=== PATIENT | male | born 1955 | race Hispanic/Latino ===

== ENCOUNTER 2023-12-04 09:32 | Outpatient (CLI) | payer BC | END 2023-12-04 09:33 | disposition home or self-care (01) | LOC: CSHMRI 09:32 | PROVIDERS: ATTEND Urology | DX: R97.20 Elevated prostate specific antigen [PSA] (principal); Z98.890 Other specified postprocedural states | CPT/HCPCS: 72197 ==

== ENCOUNTER 2024-07-04 10:53 | Observation (INO) | payer BC ==
[2024-07-03 11:11] VITALS: BMI 26.6
[2024-07-04] MEDS ORDERED: Iopamidol 300 61% 100 ML VIAL FS ONE (11:04)
[2024-07-04 12:26] LABS: #Basophils 0.02 10x3/uL (0.0-0.2); #Eosinphils 0.15 10x3/uL (0.0-0.5); #Neutrophils 5.06 10x3/uL (1.5-8.4); %Basophils 0.3 % (0.0-2.0); %Lymphocytes 22.2 % (18.0-47.0); %Monocytes 6.7 % (0.0-10.0); %Neutrophils 68.3 % (40.0-75.0); Hematocrit 37.8 % (38.8-50.0); Hemoglobin 12.3 g/dL (13.5-17.5); Mean Corpuscular HGB CONC 32.5 g/dL (32.0-36.0); Mean Corpuscular Hemoglobin 31.1 pg (27.0-33.0); Mean Corpuscular Volume 95.7 fL (81.2-95.1); Mean Platelet Volume 10.5 fL (7.4-10.4); Platelet Count 183 10x3/uL (150-450); RBC Distribution Width 13.5 % (11.5-14.5); Red Blood Cell (RBC) Count 3.95 10x6/uL (4.32-5.72); White Blood Cell (WBC) Count 7.4 10x3/uL (3.5-10.5)
[2024-07-04 12:35] LABS: PTT 28.4 sec (22.0-33.0); Prothrombin Time 11.1 sec (9.5-12.1)
[2024-07-04 12:36] LABS: ALT (SGPT) 17 U/L (8-55); AST (SGOT) 18 U/L (5-34); Albumin 4.2 g/dL (3.4-4.8); Alkaline Phosphatase 61 U/L (40-110); Anion Gap 13 mmol/L (10-20); BUN (Urea Nitrogen) 24 mg/dL (8.4-25.7); Bilirubin, Total 0.4 mg/dL (0.2-1.2); Calc. Creatinine Clearance 56 mL/min (70-130); Calcium 9.6 mg/dL (7.8-10.44); Carbon Dioxide 21 mmol/L (23-31); Chloride 111 mmol/L (98-107); Estimated GFR 56; Globulin 2.7 g/dL (2.4-3.5); Glucose 83 mg/dL (83-110); Potassium 4.3 mmol/L (3.5-5.1); Protein, Total 6.9 g/dL (5.8-8.1); Sodium 141 mmol/L (136-145)
[2024-07-04] MEDS ORDERED: Ascorbic Acid 500 mg Chewable Tablet ONE (12:48)
[2024-07-04] MEDS ORDERED: Aspirin 325 MG TAB ONE (12:48)
[2024-07-04] MEDS ORDERED: Nitroglycerin 50 MG/250 ML BOT 250 ML ONE (15:12)
[2024-07-04] MEDS ORDERED: Lidocaine 1% (PF) 30 ML VIAL ONE (15:12)
[2024-07-04] MEDS ORDERED: fentaNYL 50 mcg/mL 1 mL Vial ONE (15:12)
[2024-07-04] MEDS ORDERED: Midazolam HCl 2 mg/2 ml Vial ONE (15:12)
[2024-07-04] MEDS ORDERED: Heparin 10,000 UNITS/ 10 ML VIAL ONE (15:12)
[2024-07-04] MEDS ORDERED: Clopidogrel Bisulfate 300 MG TAB ONE (16:37)
[2024-07-04] MEDS ORDERED: Zolpidem Tartrate 5 MG TAB PO PRN (17:20)
[2024-07-04] MEDS ORDERED: Mag-Al 1200 mg/1200 mg/30 ML UDCUP PO PRN (17:20)
[2024-07-04] MEDS ORDERED: Milk Of Magnesia 30 ML UDCUP PO PRN (17:20)
[2024-07-04] MEDS ORDERED: Nitroglycerin 0.4 MG TAB (25 Tab Bottle) SL PRN (17:20)
[2024-07-04] MEDS: Sodium Chloride 0.9% 1,000 ML IV SCH (18:57)
[2024-07-04] MEDS: Gabapentin 400 MG CAP PO SCH (20:45)
[2024-07-04] MEDS: Rosuvastatin 20 MG TAB PO SCH (20:45)
[2024-07-05 05:38] LABS: #Basophils 0.02 10x3/uL (0.0-0.2); #Eosinphils 0.18 10x3/uL (0.0-0.5); #Monocytes 0.58 10x3/uL (0.0-1.1); #Neutrophils 5.54 10x3/uL (1.5-8.4); %Basophils 0.2 % (0.0-2.0); %Eosinophils 2.2 % (0.0-6.0); %Lymphocytes 20.8 % (18.0-47.0); %Monocytes 7.2 % (0.0-10.0); Hematocrit 34.8 % (38.8-50.0); Hemoglobin 11.4 g/dL (13.5-17.5); Mean Corpuscular HGB CONC 32.8 g/dL (32.0-36.0); Mean Corpuscular Hemoglobin 31.5 pg (27.0-33.0); Mean Corpuscular Volume 96.1 fL (81.2-95.1); Mean Platelet Volume 10.4 fL (7.4-10.4); Platelet Count 172 10x3/uL (150-450); RBC Distribution Width 13.7 % (11.5-14.5); Red Blood Cell (RBC) Count 3.62 10x6/uL (4.32-5.72)
[2024-07-05 05:51] LABS: ALT (SGPT) 15 U/L (8-55); AST (SGOT) 19 U/L (5-34); Albumin 3.4 g/dL (3.4-4.8); Alkaline Phosphatase 53 U/L (40-110); Anion Gap 10 mmol/L (10-20); BUN (Urea Nitrogen) 21 mg/dL (8.4-25.7); Bilirubin, Total 0.2 mg/dL (0.2-1.2); Calc. Creatinine Clearance 63 mL/min (70-130); Calcium 8.9 mg/dL (7.8-10.44); Carbon Dioxide 21 mmol/L (23-31); Chloride 112 mmol/L (98-107); Estimated GFR 65; Globulin 2.3 g/dL (2.4-3.5); Glucose 134 mg/dL (83-110); Potassium 4.1 mmol/L (3.5-5.1); Protein, Total 5.7 g/dL (5.8-8.1); Sodium 139 mmol/L (136-145)
[2024-07-05] MEDS: Acetaminophen 325 MG TAB PO PRN (06:20)
[2024-07-05] MEDS: Clopidogrel Bisulfate 75 MG TAB PO SCH (08:44)
[2024-07-05] MEDS: Losartan 50 MG TAB PO SCH (08:44)
[2024-07-05] MEDS: Aspirin Chewable 81 MG TAB PO SCH (08:44)
[2024-07-05 12:45] VITALS: BP 143/69; TEMP 97.9
== END 2024-07-05 14:38 | disposition home or self-care (01) ==
LOC: CSHSDC 10:53 → CSHTELE 17:20
PROVIDERS: ADMIT Specialist; ATTEND Specialist
PROC: 4A023N8 Measurement of Cardiac Sampling and Pressure, Bilateral, Percutaneous Approach (ICD-10-PCS; principal; 2024-07-04)
PROC: B200YZZ Plain Radiography of Single Coronary Artery using Other Contrast (ICD-10-PCS; 2024-07-04)
DX: I25.119 Atherosclerotic heart disease of native coronary artery with unspecified angina pectoris (principal); R94.39 Abnormal result of other cardiovascular function study; I10 Essential (primary) hypertension; E11.40 Type 2 diabetes mellitus with diabetic neuropathy, unspecified; E78.2 Mixed hyperlipidemia; E55.9 Vitamin D deficiency, unspecified; Z79.84 Long term (current) use of oral hypoglycemic drugs; Z98.890 Other specified postprocedural states; F17.200 Nicotine dependence, unspecified, uncomplicated; Z79.899 Other long term (current) drug therapy; Z88.6 Allergy status to analgesic agent
CPT/HCPCS: 36415; 36416; 80053; 85025; 85610; 85730; 92928; 93005; 93010; 93454; 99152; 99153; C1760; C1769; C1874; C1887; C9600; J1644; J2001; J2250; J3010; J7030; Q9967